=== PATIENT | female | born 1975 | race Hispanic/Latino ===

== ENCOUNTER → 2018-01-29 | Day surgery (SDC) | payer BC ==
[~2018-01-29] MED LIST: ACETAMINOPHEN 1000 MG/100 ML IV ONE; BUPIVACAINE HCL 0.5% INJ 30 ML VIAL INJ ONE; CEFAZOLIN SOD 2 GM/D5W 50ML 50 ML IV ONE; DEXAMETHASONE SOD PHOS INJ 4 MG/ML VIAL ONE; FENTANYL CITRATE/PF 100MCG/2 ML INJ ONE; LIDOCAINE HCL 2% LOCAL INJ 5 ML SDV VIAL INJ ONE; MIDAZOLAM HCL 2 MG/2 ML VIAL ONE; ONDANSETRON HCL INJ 2 MG/ML VIAL ONE; PROPOFOL IV EMULSION 10 MG/ML 20 ML VIAL ONE; SEVOFLURANE INHAL SOLN 250 ML PEN BTL ONE
--- OUTSIDE RECORDS SUMMARY | 2018-01-29 06:59 | XMS REPORT | Clinical Summary ---
Author Author [facility] Address Unknown Phone Unavailable Care Team Providers Care Compressor Service Technician Name Role Phone Wang Clemente MD PCP Allergies No Known Allergies Medications End Date Status Medication Sig Dispensed Refills Start Date Active ibuprofen-famotidine Take 800 mg 90 tablet 2 (DUEXIS) 800-26.6 mg by mouth 3 6 tablet (three) times a day. Active diclofenac (CATAFLAM) 50 TK 1 T PO 0 MG tablet TID 7 Active methocarbamol (ROBAXIN) 0 500 MG tablet 7 Active Problems Problem Noted Date Arthritis 10/27/2015 Overview: both knees ( a little ) Asthma Overview: have not had an episode in 10 years Encounters Care Team Description Date Type Specialty Harsh Calixto MD Pain in both knees, unspecified chronicity (Primary Dx) 02/04/2017 Office Visit Orthopedic Surgery after 01/28/2017 Family History Medical History Relation Name Comments Diabetes Father santa mendenhall Diabetes Mother cosmo mendenhall Relation Name Status Comments Father santa mendenhall Mother cosmo mendenhall Social History Date Tobacco Use Types Packs/Day Years Used Never Smoker Smokeless Tobacco: Never Used Alcohol Use Drinks/Week oz/Week Comments Yes 1 Glasses of usually when i go out with friends/family wine 1 Cans of beer 1 Shots of liquor Sex Assigned at Date Recorded Not on file Industry Job Start Date Occupation Not on file Not on file Not on file Travel End Travel History Travel Start No recent travel history available. Last Filed Vital Signs Time Taken Vital Sign Reading 02/04/2017 2:50 PM [facility] Blood Pressure 128/69 - Pulse - - Temperature - - Respiratory Rate - - Oxygen Saturation - - Inhaled Oxygen - Concentration 02/04/2017 2:50 PM [facility] Weight 99.8 kg (220 lb) 02/04/2017 2:50 PM [facility] Height 162.6 cm (5' 4") 02/04/2017 2:50 PM [facility] Body Mass Index 37.76 Plan of Treatment Health Maintenance Due Date Last Done Comments CERVICAL CANCER SCREENING 02/10/1996 INFLUENZA VACCINE 09/25/2017 HEPATITIS B VACCINES Aged Out No longer eligible based on patient's age to complete this topic IPV VACCINES Aged Out No longer eligible based on patient's age to complete this topic MENINGOCOCCAL VACCINE Aged Out No longer eligible based on patient's age to complete this topic Procedures Comments Procedure Name Priority Date/Time Associated Diagnosis XR KNEE 3 VW BILATERAL Routine 02/04/2017 Pain in both knees, 2:56 PM [facility] unspecified chronicity after 01/28/2017 Results * XR Knee 3 Vw Bilateral (02/04/2017 2:56 PM [facility]) Narrative Performed At [facility] Three views of the knees show no abnormalities. Performing Organization Address City/State/Zipcode Phone Number [facility] [address] [place] [address] after 01/28/2017 Insurance Payer Benefit Subscriber ID Type Phone Address Plan / Group BCBS BCBS xxxxxxxxx PPO CHOICE PPO/MARYANA Estrella EMPL PPO Advance Directives Patient has advance care planning documents on file. For more information, ramu moser contact: Amando Leija [address] [place] [address]
[2018-01-29 11:00] VITALS: BP 128/88
--- NOTE | 2018-01-30 13:28 | Operative Report ---
DATE OF PROCEDURE: January 29, 2018 PREOPERATIVE DIAGNOSES 1. Right knee medial meniscus tear. 2. Right knee degenerative joint disease of the knee. POSTOPERATIVE DIAGNOSES 1. Right knee medial meniscus tear. 2. Right knee degenerative joint disease of the knee. PROCEDURES PERFORMED: The patient underwent a 1. Right knee examination under anesthesia. 2. Right knee arthroscopy. 3. Right knee partial medial meniscectomy. 4. Right knee chondroplasty of the patella, the trochlea, the medial femoral condyle and medial tibial plateau. LACQUER DIPPING MACHINE OPERATOR: Melida Moya. ANESTHESIA: General endotracheal intubation anesthesia. INTRAVENOUS FLUIDS: As per the anesthesia record. BLOOD LOSS: Nominal. DESCRIPTION OF PROCEDURE: Ms. Mendenhall was taken to the operating room and placed in the supine position on the operating room table. Following induction of general anesthesia as well as endotracheal intubation, the patient's right lower extremity was examined under anesthesia. She was found to have a mild effusion within the knee joint but an otherwise ligamentously stable knee. The patient's lower extremity was prepped and draped in standard surgical fashion. A 2-portal technique was used to provide this patient an arthroscopic evaluation of the knee joint. Examination of the suprapatellar pouch and medial and lateral gutters found no evidence of loose bodies. There was, however, evidence of chondromalacia of the patellar and trochlear surfaces. The scope was advanced to the medial compartment, and examination of the medial compartment demonstrated a torn and macerated medial meniscus. There was also chondromalacia of the articulating surfaces. A combination of biting forceps and a motorized shaver were used to resect the torn portion of the meniscus. Chondroplasties of the medial femoral condyle and medial tibial plateau were performed at this time. The scope was then advanced into the intercondylar notch, and the anterior cruciate ligament was identified and found to be intact. The scope was advanced into the lateral compartment, and there was no significant pathology. The scope was then placed in the suprapatellar pouch, and chondroplasties of the patellar and trochlea were performed. The knee was deflated of its sterile normal saline. Each of the portal sites was closed using 4-0 nylon suture. The portal sites as well as the knee itself were then injected with half percent Marcaine with epinephrine. Sterile dressings were applied, and the patient was awakened and taken to the postanesthesia care unit in stable condition. Job#: [id number] EV
== END | disposition home or self-care (01) ==
LOC: OR 06:56
PROVIDERS: ATTEND Specialist
DX: S83.241A Other tear of medial meniscus, current injury, right knee, initial encounter (principal); M17.11 Unilateral primary osteoarthritis, right knee; M22.41 Chondromalacia patellae, right knee; J45.909 Unspecified asthma, uncomplicated; F17.200 Nicotine dependence, unspecified, uncomplicated; W10.8XXA Fall (on) (from) other stairs and steps, initial encounter; Y92.89 Other specified places as the place of occurrence of the external cause; Z68.41 Body mass index [BMI] 40.0-44.9, adult
CPT/HCPCS: 29881; 81025; J0131; J0690; J1100; J2001; J2250; J2405; J2704

== ENCOUNTER → 2018-06-24 | Outpatient (RCR) | payer BC | LOC: PT 05-27 10:54 | PROVIDERS: ATTEND Specialist | DX: M25.561 Pain in right knee (principal); M25.661 Stiffness of right knee, not elsewhere classified; R26.2 Difficulty in walking, not elsewhere classified; M62.81 Muscle weakness (generalized) | CPT/HCPCS: 97139 ==